=== PATIENT | male | born 1965 | race Caucasian/White ===

== ENCOUNTER 2021-11-20 12:50 | Emergency (ER) | payer BC, SELFPAY ==
[2021-11-20] VITALS (9 sets, daily range): BP systolic 120–144; BP diastolic 70–86; PULSE 70–90; RESP 16–20; TEMP 36.7–37; O2SAT 96–100; BMI 28.8; BMI 26.9
--- NOTE | 2021-11-20 13:06 | EXP.UTC ---
Discharge Plan Disposition Patient Disposition: Still a Patient Condition: Fair Prescriptions Prescriptions: No Action glyburide 5 mg tablet 10 mg PO BID Label Comments: TAKE 2 TABLETS 2 TIMES EACH DAY BEFORE MEALS Januvia 100 mg tablet 100 mg PO DAILY Label Comments: TAKE 1 TABLET 1 TIME EACH DAY Referrals Follow up/Referrals: Azalia Gay [Primary Care Provider] - See instructions Discharge ED Provider: Laila Murillo [facility] HPI General Chief complaint: PAIN Stated complaint: sharp pain in Rt side into back Mode of Arrival: Ambulatory Source of Information: Patient Limitations: No Limitations Time Seen by Provider: 11/20/21 14:16 Description of Symptoms (Recalled from Triage Doc. by RN): DULL PAIN UNDER RIGHT SIDE OF RIBS X 2-3 WEEKS. History of Present Illness Provider Complaint: Patient state that he has been having pain in his right side around his lower rib area for about 3 weeks on and off denies known injury States that pain has been primarily in right side but now feels like it is moving into his back States that pain is worse at times with movement States that he hasnt done anything to hurt his ribs or anything States that last night he thought he may have been constipated so he took something to move his bowels and he had several large BM but still uncomfortable this morning and felt more bloated and swollen so he came in to get checked Related Data Home Medications Medication Instructions Recorded Confirmed glyburide 5 mg tablet 10 mg PO BID Diabetes 11/20/21 11/20/21 sitagliptin 100 mg tablet (Januvia) 100 mg PO DAILY Diabetes 11/20/21 11/20/21 Allergies Allergy/AdvReac Type Severity Reaction Status Date / Time No Known Allergies Allergy Verified 11/20/21 13:23 [facility] Social History Smoking Status: Current every day smoker alcohol intake: never current occupational status: other Travel in the last 8 weeks: None ROS Obtained: Yes All systems reviewed & no additional complaints except as documented and Yes Systems reviewed as appropriate & no additional complaints except as documented Constitutional Constitutional: Reports system reviewed and no additional complaints, except as documented and Reports as per HPI Cardiovascular Cardiovascular: Reports system reviewed and no additional complaints, except as documented and Reports as per HPI Respiratory Respiratory: Reports system reviewed and no additional complaints, except as documented and Reports as per HPI Gastrointestinal Gastrointestingal: Reports system reviewed and no additional complaints, except as documented, as per HPI and other Comments: Pain in right side on lower portion of rib area that goes into his back denies known injury pain been on and off for 2-3wks that has continued to get worse Musculoskeletal Musculoskeletal: Reports system reviewed and no additional complaints, except as documented and Reports as per HPI Physical Exam General General appearance: alert and in no apparent distress Chest Chest inspection: Present tenderness Expanded Chest Exam Male Torso: 1. reports tenderness and pain that goes into back that has been on and off for about 2-3 wks Respiratory Respiratory exam: Present normal lung sounds bilaterally; Absent respiratory distress or wheezes Cardiovascular Cardiovascular exam: Present regular rate, normal rhythm and normal heart sounds Abdominal Exam Abdominal exam: Present soft, tenderness (right side area reports tenderness with palpation and feeling bloated) and normal bowel sounds Neurological Exam Neurological exam: Present alert, oriented X3 and normal gait Medical Decision Making Kyrie Inquiry Pt receiving controlled substance: No Kyrie was queried for this patient: No Vital Signs: 11/20/21 13:02 Temperature 98.4 F Temperature Source Oral Pulse Rate [Radial] 90 Respiratory Rate 20 Blood Pressure [Left Arm] 134/78 Blood Pressure Mean [Left Arm
--- NOTE | 2021-11-20 13:24 | XR_ITS ---
FINAL REPORT CLINICAL HISTORY: PAIN right side no know inj FINDINGS: Multiple views of the right ribs were obtained. There is no acute fracture. The visualized lungs are clear. No pneumothorax is identified. Note is made of multiple air-fluid levels in a nonspecific pattern. IMPRESSION: No rib fracture or pneumothorax identified. Multiple air-fluid levels in a nonspecific pattern could represent ileus or enteritis. Reviewed, Interpreted and Dictated by Nehemiah Tavera III, MD Transcribed by Dima Phoenix Authenticated and [facility]
--- NOTE | 2021-11-20 14:15 | HMH.EDABDPAI ---
Discharge Plan Disposition Patient Disposition: Home, Self-Care Condition: Fair Prescriptions Prescriptions: New dicyclomine 10 mg capsule 10 mg PO TID Qty: 20 0RF No Action glyburide 5 mg tablet 10 mg PO BID Label Comments: TAKE 2 TABLETS 2 TIMES EACH DAY BEFORE MEALS Januvia 100 mg tablet 100 mg PO DAILY Label Comments: TAKE 1 TABLET 1 TIME EACH DAY Referrals Follow up/Referrals: Azalia Gay [Primary Care Provider] - See instructions Activity Restrictions/Add. Instructions Additional Instructions/Restrictions: Follow-up with your primary care doctor in about 1 week if symptoms persist. You may need to be seen by a resource paraprofessional. Return to the emergency department if symptoms worsen in any way. Your work-up today in the emergency department did not show any dangerous abnormalities. Clinical Impressions Clinical Impression: Enteritis Instructions Patient Instructions: DI for Abdominal Pain-Adult Discharge ED Provider: Laila Murillo Abdominal Pain HPI General Chief Complaint: PAIN Stated Complaint: sharp pain in Rt side into back Time Seen by Provider: 11/20/21 14:16 Mode of Arrival: Ambulatory Source of Information: Patient Limitations: No Limitations Description of Symptoms (Recalled from ER Triage Doc. by RN): pt comes in with c/o pain in right side. pt does still have his gallbladder. states that pain began 1 month ago, but has come and gone. now the pain is wrapping around into back and is getting worse. History of Present Illness HPI narrative: The patient came from the urgent treatment center sent by the nurse practitioner because his x-ray shows air-fluid levels in his intestines. The patient states that he has been having some right upper quadrant pain for the last month or so. He denies any vomiting. He complains of some constipation which was relieved yesterday after taking some laxatives. Related Data Home Medications Medication Instructions Recorded Confirmed glyburide 5 mg tablet 10 mg PO BID Diabetes 11/20/21 11/20/21 sitagliptin 100 mg tablet (Januvia) 100 mg PO DAILY Diabetes 11/20/21 11/20/21 Previous Rx's Medication Instructions Recorded dicyclomine 10 mg capsule 10 mg PO TID #20 caps 11/20/21 Allergies Allergy/AdvReac Type Severity Reaction Status Date / Time No Known Allergies Allergy Verified 11/20/21 13:23 PFSH PFS Social History (Updated 11/20/21 @ 15:49 by Mai Lubin APRN) Smoking Status: Current every day smoker alcohol intake: never current occupational status: other Travel in the last 8 weeks: None ROS Obtained: Yes All systems reviewed & no additional complaints except as documented Physical Exam General General appearance: alert and in no apparent distress Head Head exam: atraumatic, normocephalic and normal inspection Eye Eye exam: Present normal appearance, PERRL and EOMI; Absent scleral icterus ENT ENT exam: Present normal exam, normal oropharynx, mucous membranes moist, TM's normal bilaterally and normal external ear exam Neck Neck exam: Present normal inspection, full ROM and trachea midline; Absent meningismus or lymphadenopathy Chest Chest inspection: Present normal inspection and symmetric chest wall rise; Absent tenderness Respiratory Respiratory exam: Present normal lung sounds bilaterally; Absent respiratory distress Cardiovascular Cardiovascular exam: Present regular rate and normal rhythm; Absent JVD Abdominal Exam Abdominal exam: Present soft, tenderness (mild) and normal bowel sounds; Absent distention or guarding Abdominal tenderness: Present RUQ Extremities Exam Extremities exam: Present normal inspection, full ROM and normal capillary refill; Absent calf tenderness Back Exam Back exam: Present normal inspection; Absent tenderness Neurological Exam Neurological exam: Present alert and oriented X3 Psychiatric Psychiatric exam: Present normal affect and normal mood Skin S
--- NOTE | 2021-11-20 14:17 | CT_ITS ---
FINAL REPORT CLINICAL HISTORY: Abdominal pain, abnormal XR FINDINGS: CT OF THE ABDOMEN AND PELVIS WITH CONTRAST Axial CT images of the abdomen and pelvis were obtained after the administration of oral and iv contrast. Coronal reformatted images were also obtained and reviewed.This study was performed with techniques to keep radiation doses as low as reasonably achievable (ALARA). Individualized dose reduction techniques using automated exposure control or adjustment of mA and/or kV according to the patient's size were employed. Abdomen: There is mild bibasilar atelectasis or scarring. The heart is normal in size. The liver has an unremarkable appearance, without evidence of mass or biliary ductal dilatation. The gallbladder is present. The spleen is unremarkable. No adrenal mass is present. The pancreas has an unremarkable appearance. The kidneys are normal, without evidence of mass or hydronephrosis. The aorta is normal in caliber. There is mild vascular calcification. There is no free fluid or adenopathy. No mass or abnormal fluid collection is seen. Pelvis: The appendix is mildly enlarged at 7 mm without adjacent inflammation. There is no evidence of appendicitis. There is mild bladder wall thickening which is likely inflammatory. There are multiple enlarged left inguinal lymph nodes measuring up to 3.8 cm. There are multiple fluid-filled small and large bowel loops that may represent enteritis. IMPRESSION: Fluid-filled small and large bowel loops may represent enteritis. Left inguinal adenopathy could be neoplastic versus reactive. Reviewed, Interpreted and Dictated by Nehemiah Tavera III, MD Transcribed by Dima Phoenix Authenticated and [facility]
--- NOTE | 2021-11-20 14:20 | PC.NURSE ---
1413 ED MD AT BEDSIDE FOR EVALUATION
--- NOTE | 2021-11-20 14:30 | PC.NURSE ---
oral contrast is in , radiology notified
[2021-11-20 14:38] LABS: Chloride 104 mmol/L (98-107); Potassium 4.7 mmoL/L (3.5-5.1); Sodium 141 mmol/L (136-145)
[2021-11-20 14:39] LABS: Basophils # 0.2 K/mm3 (0-0.2); Basophils % 1.6 % (0.1-2.0); Eosinophils # 0.4 K/mm3 (0.0-0.4); Eosinophils % 3.8 % (0.1-12.0); Hematocrit 47.9 % (42.0-52.0); Hemoglobin 15.9 g/dL (14.1-18.0); Lymphocytes # 1.8 K/mm3 (0.7-4.5); Lymphocytes % 19.6 % (10-50); Mean Corpuscular HGB Conc 33.3 g/dL (31.8-35.4); Mean Corpuscular Hemoglobin 30.4 pg (27.0-31.2); Mean Corpuscular Volume 91.4 fl (80-94); Mean Platelet Volume 9.6 fl (7.4-10.4); Monocytes # 0.5 K/mm3 (0.1-1.0); Monocytes % 5.7 % (1.7-9.3); Neutrophils # 6.4 K/mm3 (1.8-7.8); Neutrophils % 69.3 % (37.0-80.0); Platelet Count 225 K/mm3 (142-424); Red Blood Count 5.24 M/mm3 (4.60-6.20); Red Cell Distribution Width 13.5 % (11.5-17.5); White Blood Count 9.2 K/mm3 (4.8-10.8)
[2021-11-20 14:40] LABS: Blood Urea Nitrogen 16 mg/dl (9-20); Creatinine Clearance Estimated 131 mL/min (50-200); Estimated Glomerular Filt Rate 100 ml/min (>60); GFR (African American) 121 ML/MIN (>60)
[2021-11-20 14:41] LABS: Alanine Aminotransferase 17 U/L (12-78); Albumin Level 4.4 g/dl (3.5-5.0); Albumin/Globulin Ratio 1.3 (1.1-1.8); Alkaline Phosphatase 84 U/L (38-126); Anion Gap 13.7 mEq/L (5-15); Aspartate Amino Transferase 23 U/L (17-59); Bilirubin,Total 0.6 mg/dl (0.2-1.3); Calcium 8.7 mg/dl (8.4-10.2); Carbon Dioxide 28 mmol/L (22.0-30.0); Globulin 3.3 g/dL (1.3-3.2); Glucose 101 mg/dl (74-100); Total Protein,Serum 7.7 g/dl (6.3-8.2)
--- NOTE | 2021-11-20 15:59 | PC.NURSE ---
pt going to CT via W/C
--- NOTE | 2021-11-20 16:09 | PC.NURSE ---
PT RETURNED FROM CT
--- NOTE | 2021-11-20 17:13 | PC.NURSE ---
ED MD AT BEDSIDE DISCUSSING CT RESULTS
== END 2021-11-20 17:25 | disposition home or self-care (01) ==
LOC: UTC 13:07 → ER 14:09
PROVIDERS: Emergency Provider Emergency Medicine; PCP Nurse Practitioner Family
DX: R10.11 Right upper quadrant pain (principal); M54.9 Dorsalgia, unspecified; K59.00 Constipation, unspecified; F17.210 Nicotine dependence, cigarettes, uncomplicated; Z79.899 Other long term (current) drug therapy
CPT/HCPCS: 71101; 74177; 80053; 85025; 99285; Q9967